=== PATIENT | male | born 1985 | race Caucasian/White ===

== ENCOUNTER 2023-04-25 10:18 | Outpatient (CLI) | payer SELFPAY ==
--- NOTE | 2023-04-25 10:30 | US_ITS ---
WS: [id number] INDICATION: Biceps tear TECHNIQUE: Ultrasound LEFT biceps FINDINGS: Ultrasound LEFT upper arm and elbow in the area of concern. Subcutaneous edema overlying th e biceps brachii muscle. Focal fluid and edema at the myotendinous junction. Poorly visualized biceps tendon with fluid along the biceps tendon sheath in the antecubital fossa. Suspect high-grade biceps tear with tendon retraction above the elbow. Recommend MRI in further evaluation. IMPRESSION: Suspected high-grade biceps tear with tendon retraction. Recommend MRI in further evaluat ion for better anatomic detail.
== END 2023-04-25 10:19 | disposition home or self-care (01) ==
LOC: RAD 10:19
PROVIDERS: PCP Nurse Practitioner Family; Visit Provider Nurse Practitioner Family
DX: S46.212A Strain of muscle, fascia and tendon of other parts of biceps, left arm, initial encounter (principal); X58.XXXA Exposure to other specified factors, initial encounter
CPT/HCPCS: 76882